=== PATIENT | female | born 1970 | race Hispanic/Latino ===

== ENCOUNTER 2018-02-12 03:01 | Emergency (ER) | payer OTHER ==
--- NOTE | 2018-02-12 03:12 | ED UPPER/LOWER EXTREMITY COMPL ---
History of Present Illness General Chief Complaint: General Adult Stated Complaint: "BIBA PER EMS CELLULITITIS" Source: patient Exam Limitations: no limitations Vital Signs & Intake/Output Vital Signs & Intake/Output Vital Signs Date Time Temp Pulse Resp B/P B/P Pulse O2 O2 Flow FiO2 Mean Ox Delivery Rate 02/12 0530 97.8 84 18 115/77 100 Room Air 02/12 0323 97.6 86 18 112/76 100 Room Air Allergies Coded Allergies: azithromycin (From ZITHROMAX) (HIVES/SWELLING 02/12/18) cholecalciferol (vitamin D3) (From ZOLATE) (HIVES/SWELLING 02/12/18) folic acid (From ZOLATE) (HIVES/SWELLING 02/12/18) Uncoded Allergies: HUMABID LA (SWELLING 02/12/18) Reconcile Medications Cephalexin (Keflex) 500 MG CAPSULE 1 CAP PO 4 TIMES/DAY INFECTION Sulfamethoxazole/Trimethoprim (Bactrim Ds Tablet) 800 MG-160 MG TABLET 1 TAB PO BID INFECION Triage Nurses Notes Reviewed? yes Onset: Gradual Duration: week(s):, waxing and waning Timing: recent history Severity: moderate Method of Injury: unknown HPI: 47 yo woman h/o diabetes, h/o "stent in my blood vessel in my leg," and recurrent cellulitis on left leg, presents with redness, tenderness, and swelling consistent with her prior episodes of cellulitis. She shares that she has had these symptoms for the past 6 months, but notes increased redness and swelling over the past few days. No fever, chills, joint pain, lymphangitic streaking. She is otherwise well. Past History Travel History Traveled to [place] past 21 day No Medical History Any Pertinent Medical History? see below for history Psychiatric: anxiety Endocrine: diabetes Surgical History Surgical History: vascular stent in left leg Family History Hx Contributory? No Review of Systems Review of Systems Constitutional: Reports: no symptoms. EENTM: Reports: no symptoms. Respiratory: Reports: no symptoms. Cardiovascular: Reports: no symptoms. Gastrointestinal/Abdominal: Reports: no symptoms. Genitourinary: Reports: no symptoms. Musculoskeletal: Reports: no symptoms. Skin: Reports: no symptoms. Neurological/Psychological: Reports: no symptoms. Hematologic/Endocrine: Reports: no symptoms. Immunological: Reports: no symptoms. All Other Systems: Reviewed and Negative Physical Exam Physical Exam General Appearance: well developed/nourished, mild distress Head: atraumatic Ears, Nose, Throat: normal pharynx, normal ENT inspection Neck: normal inspection Cardiovascular/Respiratory: normal breath sounds, regular rate/rhythm, no respiratory distress Gastrointestinal: obese Leg Left: mild erythema and swelling of left rodriguez and calf. mildly tender to palpation. 1-2+ pitting edema, Right rodriguez w/ 1+ pitting edema. left leg is slightly warm, but not hot to palpation. , 2+ distal pulses bilateral legs. Progress Differential Diagnosis: cellulitis, venous vs vascular insufficiency. Plan of Care: Orders Procedure Date/time Status COMPREHENSIVE METABOLIC PANEL 02/13 312 Complete CBC WITHOUT DIFFERENTIAL 02/13 312 Complete Laboratory Tests 02/12/18 0345: Anion Gap 10, Estimated GFR > 60, BUN/Creatinine Ratio 25.0, Glucose 239 H, Calcium 9.7, Total Bilirubin 0.1 L, AST 17, ALT 25, Alkaline Phosphatase 141 H , Total Protein 6.3, Albumin 3.4 L, Globulin 2.9, Albumin/Globulin Ratio 1.2, CBC w Diff NO MAN DIFF REQ, RBC 4.68, MCV 86.5, MCH 28.0, MCHC 32.4 L, RDW 15.6 H, MPV 9.8, Gran % 58.1, Lymphocytes % 31.5, Monocytes % 8.5, Eosinophils % 1.6 , Basophils % 0.3, Absolute Granulocytes 5.1, Absolute Lymphocytes 2.8, Absolute Monocytes 0.7 H, Absolute Eosinophils 0.1, Absolute Basophils 0 Departure Departure Disposition: HOME OR SELF CARE Condition: Stable Clinical Impression Primary Impression: Cellulitis Referrals: Patient Has No Primary Care Dr Departure Forms: Customer Survey General Discharge Information Prescriptions: Current Visit Scripts Cephalexin (Keflex) 1 CAP PO 4 TIMES/DAY #40 CAP Sulfamethoxazole/Trimethoprim (Bactrim Ds Tablet) 1 TAB PO BID #20 TAB Comments mild cellulitis without fever or wbc count elevation... I gave her a referral for u/s to evaluate for DVT... She will follow up with her PMD and vascular surgeon.
[2018-02-12 04:12] LABS: ABSOLUTE BASOPHIL COUNT 0 /CUMM (0.0-0.2); ABSOLUTE EOSINOPHIL COUNT 0.1 /CUMM (0.0-0.7); ABSOLUTE GRANULOCYTE CT 5.1 /CUMM (1.4-6.5); ABSOLUTE LYMPH COUNT 2.8 /CUMM (1.2-3.4); ABSOLUTE MONOCYTE COUNT 0.7 /CUMM (0.10-0.60); BASOPHIL % 0.3 % (0.0-2.0); EOSINOPHIL % 1.6 % (0-5); GRANULOCYTE % 58.1 % (42.2-75.2); HEMATOCRIT 40.5 % (37-47); MEAN CORPUSCULAR HGB CONC 32.4 G/DL (33.0-37.0); MEAN CORPUSCULAR VOLUME 86.5 FL (81.0-99.0); MEAN PLATELET VOLUME 9.8 FL (7.4-10.4); PLATELET COUNT 188 /CUMM (130-400); RBC DISTRIBUTION WIDTH 15.6 % (11.5-14.5); RED BLOOD CELL CT 4.68 /CUMM (4.20-5.40); WHITE BLOOD CELL COUNT 8.8 /CUMM (4.8-10.8)
[2018-02-12] MEDS ORDERED: BACTRIM DS TAB1 EACH PO (04:58)
[2018-02-12] MEDS ORDERED: KEFLEX500 M1 PO (04:58)
[2018-02-12 05:30] VITALS: BP 115/77
== END 2018-02-12 06:04 ==
LOC: ERH 03:01
PROVIDERS: Pediatrics
DX: L03.116 Cellulitis of left lower limb (principal)
CPT/HCPCS: 96374; 96375; J0690; J1200

== ENCOUNTER 2018-04-10 11:58 | Emergency (ER) | payer OTHER ==
[~2018-04-10] VITALS: Ht 172.7 cm; Wt 125.6 kg
[~2018-04-10 11:58] MED LIST: BACTRIM DS TAB1 EACH PO; KEFLEX500 M1 PO
[2018-04-10 13:55] LABS: ABSOLUTE BASOPHIL COUNT 0.1 /CUMM (0.0-0.2); ABSOLUTE EOSINOPHIL COUNT 0.1 /CUMM (0.0-0.7); ABSOLUTE GRANULOCYTE CT 6.9 /CUMM (1.4-6.5); ABSOLUTE LYMPH COUNT 2.5 /CUMM (1.2-3.4); ABSOLUTE MONOCYTE COUNT 0.8 /CUMM (0.10-0.60); BASOPHIL % 0.8 % (0.0-2.0); EOSINOPHIL % 0.7 % (0-5); GRANULOCYTE % 67.2 % (42.2-75.2); HEMATOCRIT 41.2 % (37-47); MEAN CORPUSCULAR HGB 28.7 PG (27.0-31.0); MEAN CORPUSCULAR HGB CONC 32.7 G/DL (33.0-37.0); MEAN CORPUSCULAR VOLUME 87.7 FL (81.0-99.0); MEAN PLATELET VOLUME 10.3 FL (7.4-10.4); PLATELET COUNT 212 /CUMM (130-400); RBC DISTRIBUTION WIDTH 14.6 % (11.5-14.5); WHITE BLOOD CELL COUNT 10.3 /CUMM (4.8-10.8)
--- NOTE | 2018-04-10 14:40 | CT SCAN REPORT ---
EXAMINATION: CT ABDOMEN AND PELVIS WITHOUT CONTRAST CLINICAL INFORMATION: Left flank pain and left lower quadrant pain. Presumptive diagnosis of kidney stone. COMPARISON: None. TECHNIQUE: Multidetector volumetric imaging was performed from the superior aspect of the liver through the pubic symphysis. Sagittal and coronal reformatted images were obtained on the technologist workstation. DLP: 1405.33 mGy-cm. FINDINGS: LUNG BASES: Mild platelike atelectasis is seen in the right middle lobe. LIVER, GALLBLADDER, AND BILIARY TREE: The liver is normal in size, shape, and attenuation. No focal hepatic lesion on noncontrast imaging. No biliary ductal dilatation is present. The gallbladder is unremarkable with no evidence of radiopaque gallstones, gallbladder wall thickening, or obvious pericholecystic inflammatory changes. PANCREAS: Diffusely atrophic with fatty infiltration seen. SPLEEN, ADRENAL GLANDS: Unremarkable on noncontrast imaging. KIDNEYS AND URETERS: The kidneys are normal in size, shape, and attenuation. No hydronephrosis, hydroureter, or calculi seen. No perinephric stranding. BLADDER: The bladder is markedly distended with large amounts of air seen within nondependent portions of the bladder lumen. The bladder wall is irregularly thickened. There is a small bowel anastomotic suture line in the right lower quadrant abutting the bladder dome, and there is minimal fat stranding seen extending from the bowel to the right lateral bladder dome. The pericystic fat planes are otherwise well preserved and no fistulous tract to bowel is seen. No Myers catheter is seen in place. Unclear if patient straight catheterizes herself for what appears to be a neurogenic bladder. If the patient does not straight catheterizes herself, the findings are of uncertain etiology and occult fistulous tract between the right lower quadrant small bowel and bladder must be excluded. No definite emphysematous changes are seen in the bladder wall itself. PELVIC VISCERA: Unremarkable. GASTROINTESTINAL TRACT: Mild tortuosity of the second and third portion of the duodenum is seen. Bowel anastomotic suture line is seen within small bowel loops in the right lower quadrant. Please see bladder section above as well for further discussion. The appendix is unremarkable. ABDOMINAL WALL: There is a small fat-containing umbilical hernia. LYMPH NODES, VASCULAR: Unremarkable. A left iliac vein stent graft is seen in place. OSSEOUS STRUCTURES: A posterior spinal stimulator is seen in place with the electrodes extending up into the mid back level (T7 and T9). Posterior spinal fusion hardware is seen at L4, L5 and S1. IMPRESSION: 1. Enlarged irregularly thick walled bladder is seen with large amounts of air within the bladder lumen. No definite air within the bladder wall is seen and no discrete fistulous tract to bowel is seen. There is, however, small amount of localized fat stranding seen along the right lateral bladder dome, extending to the right lower quadrant small bowel anastomotic suture line. There is also a loss of the fat plane between a small segment of this bowel and the bladder dome and a subtle occult fistulous tract between the bladder and bowel is difficult to exclude. Given these findings, if there are no other clinically obvious reasons for gas within the bladder, fistulous tract between small bowel and bladder must be excluded. A CT cystogram may be helpful in further assessment. There may be an underlying abnormal neurogenic bladder. Clinical correlation is requested. 2. No evidence of nephrolithiasis or hydroureteronephrosis. 3. Small fat-containing umbilical hernia. This urgent result was discussed with ASHLEY Tan 04/10/2018, 2:16 PM and it was ascertained that the content and urgency of this report was understood at the time of direct communication.
--- NOTE | 2018-04-10 14:42 | ULTRASOUND REPORT ---
EXAMINATION: US TRIPLEX LOWER EXTREMITY, LEFT CLINICAL INFORMATION: There is a 47-year-old female with left leg pain. Possible deep vein thrombosis. COMPARISON: None TECHNIQUE: Color-flow triplex imaging with spectral analysis and compression Doppler were performed on the lower extremity. The calf veins were poorly visualized. FINDINGS: Respiratory variation, normal compression and augmented flow are noted throughout the lower extremity. The visualized common femoral vein, superficial femoral vein, profunda femoral vein, popliteal vein and midcalf peroneal and posterior tibial venous segments show no evidence of deep venous thrombosis. There is no Altamirano's cyst. IMPRESSION: No evidence of deep venous thrombosis involving the lower extremity.
--- NOTE | 2018-04-10 18:52 | ED GI/GU/ABDOMINAL COMPLAINT ---
History of Present Illness General Chief Complaint: General Adult Stated Complaint: PT HAS PAIN POSSIBLE BLADDER INFECTION,LT PAIM Source: patient Exam Limitations: no limitations Vital Signs & Intake/Output Vital Signs & Intake/Output Vital Signs Date Time Temp Pulse Resp B/P B/P Pulse O2 O2 Flow FiO2 Mean Ox Delivery Rate 04/11 0111 98.7 74 18 139/82 99 Room Air 04/10 2327 97.1 79 20 145/79 97 Room Air 04/10 2122 98.7 73 18 135/75 100 Room Air 04/10 1937 98.7 86 20 145/76 98 Room Air 04/10 1705 98.9 76 20 131/73 99 Room Air 04/10 1219 96.6 93 18 132/84 96 Room Air ED Intake and Output 04/11 0000 04/10 1200 Intake Total Output Total 900 Balance -900 Output, Urine 900 Patient 277 lb Weight Weight Reported by Patient Measurement Method Allergies Coded Allergies: azithromycin (From ZITHROMAX) (HIVES/SWELLING 02/12/18) cholecalciferol (vitamin D3) (From ZOLATE) (HIVES/SWELLING 02/12/18) folic acid (From ZOLATE) (HIVES/SWELLING 02/12/18) Uncoded Allergies: HUMABID LA (SWELLING 02/12/18) Triage Note: 47 Y/O FEMALE C/O DIFFUSE ABDOMINAL PAIN RADIATING INTO L FLANK SINCE YESTERDAY. +NAUSEA/VOMITING. DENIES DIARRHEA. STATES SHE SAW HER DR YESTERDAY AND HAD OUTPATIENT BLOODWORK AND URINE DONE WITH UNKNOWN RESULTS. PT ALSO C/O L LOWER EXTREMITY REDNESS SINCE YESTERDAY - HX RECURRENT CELLULITIS PER PT. AFEBRILE. EVAL'D BY ASHLEY BRANTLEY IN TRIAGE Triage Nurses Notes Reviewed? yes ? N Is pt currently ? No HPI: Patient presents for evaluation of a severe left-sided abdominal pain radiating to the left back. The pain began acutely yesterday and has been intermittent since. Patient states it feels like "contractions". Patient felt chills yesterday but denies fever or cold symptoms. She likewise denies diarrhea or dysuria. She admits to vomiting 4 times yesterday (nonbloody). Past surgical history is pertinent for bladder augmentation. (Mary JACOBSON,Ricardo Bourne) Reconcile Medications Cephalexin (Keflex) 500 MG CAPSULE 1 CAP PO TID cellulitis Cephalexin (Keflex) 500 MG CAPSULE 1 CAP PO TID cellulitis Fluconazole (Diflucan) 200 MG TABLET 1 TAB PO DAILY uti Oxycodone HCl/Acetaminophen (Percocet 5-325 MG Tablet) 5 MG-325 MG TABLET 1-2 TAB PO Q6H PRN severe pain Sulfamethoxazole/Trimethoprim (Bactrim Ds Tablet) 800 MG-160 MG TABLET 1 TAB PO BID INFECION (Johann Cleveland MD) Past History Travel History Traveled to [place] past 21 day No Medical History Any Pertinent Medical History? see below for history Neurological: seizure, DIABETIC NEUROPATHY EENT: NONE Cardiovascular: NONE Respiratory: bronchitis, COPD Gastrointestinal: NONE Hepatic: NONE Renal: NONE Musculoskeletal: chronic back pain Psychiatric: anxiety, depression Endocrine: diabetes, hypothyroidism Blood Disorders: NONE Cancer(s): NONE FINISHING INSPECTOR/Reproductive: NONE Surgical History Surgical History: vascular stent in left leg Psychosocial History What is your primary language Uzbek Tobacco Use: Current Daily Use Daily Tobacco Use Amount/Type: => 5 Cigarettes daily Family History Hx Contributory? No (Mary JACOBSON,Ricardo Bourne) Review of Systems Review of Systems Constitutional: Reports: no symptoms. EENTM: Reports: no symptoms. Respiratory: Reports: no symptoms. Cardiovascular: Reports: no symptoms. GI: Reports: see HPI. Genitourinary: Reports: no symptoms. Musculoskeletal: Reports: no symptoms. Skin: Reports: no symptoms. Neurological/Psychological: Reports: no symptoms. Hematologic/Endocrine: Reports: no symptoms. Immunologic/Allergic: Reports: no symptoms. All Other Systems: Reviewed and Negative (Ricardo Hernandez MD) Physical Exam Physical Exam Gastrointestinal: SEE BELOW Comments: Gen.: Well-nourished, well-developed, no acute respiratory distress. Obese. Head: Normocephalic, atraumatic. Eyes: Normal inspection bilaterally Ears: Normal inspection bilaterally Nose: Normal inspection Throat/mouth : Moist mucosa Neck: Supple, full range of motion, no goiter Heart: Regular rate and rhythm, no murmurs rubs or gallops Lungs: Clear to auscultation bilaterally with normal air entry Chest: Nontender Back: Normal range of motion, nontender Abdomen: Soft, tenderness over the left upper and left lower quadrants with brief voluntary guarding but no apparent rebound, nondistended, normal bowel sounds Extremities: Normal range of motion grossly, equal radial pulses, no cyanosis clubbing or edema Neurologic: Cranial nerves grossly intact, speech is clear Skin: warm and dry Psychiatric: Calm, cooperative, no apparent delusions or hallucinations Core Measures ACS in differential dx? No Sepsis Present: No Sepsis Focused Exam Completed? No (Mary JACOBSON,Ricardo Bourne) Progress Differential Diagnosis: biliary colic, diverticulitis, inflamm bowel dis, kidney stone, pancreatitis, perforated viscous Plan of Care: Orders Procedure Date/time Status Add-on Test (ER Only) 04/10 185 Active Myers, Insertion/Removal/Asses 04/10 185 Active Straight Cath 04/10 1441 Active BLOOD CULTURE 04/10 1323 Active CULTURE,URINE 04/10 1257 Active LIPASE 04/10 1223 Complete LACTIC ACID 04/10 1223 Complete COMPREHENSIVE METABOLIC PANEL 04/10 1223 Complete CBC WITHOUT DIFFERENTIAL 04/10 1223 Complete URINALYSIS 04/10 1207 Complete Current Medications Sig/Blanca Start time Last Medication Dose Stop Time Status Admin Ketorolac 60 MG ONCE ONE 04/10 1230 CAN Tromethamine 04/10 1231 (Toradol) Ondansetron HCl 4 MG ONCE ONE 04/10 1230 CAN (Zofran) 04/10 1231 Laboratory Tests 04/10/18 1523: Lactic Acid Cancelled 04/10/18 1325: Anion Gap 8, Estimated GFR > 60, BUN/Creatinine Ratio 24.0, Glucose 324 H, Lactic Acid 1.9, Calcium 10.2, Total Bilirubin 0.2, AST 17, ALT 25, Alkaline Phosphatase 135 H, Total Protein 6.1 L, Albumin 3.5, Globulin 2.6, Albumin/ Globulin Ratio 1.3, Lipase 263, CBC w Diff NO MAN DIFF REQ, RBC 4.70, MCV 87.7, MCH 28.7, MCHC 32.7 L, RDW 14.6 H, MPV 10.3, Gran % 67.2, Lymphocytes % 24.0, Monocytes % 7.3, Eosinophils % 0.7, Basophils % 0.8, Absolute Granulocytes 6.9 H, Absolute Lymphocytes 2.5, Absolute Monocytes 0.8 H, Absolute Eosinophils 0.1 , Absolute Basophils 0.1 04/10/18 1257: Urine Color YEL, Urine Clarity TURBD H, Urine pH 6.0, Ur Specific Gustine 1.025 , Urine Protein NEG, Urine Ketones NEG, Urine Nitrite NEG, Urine Bilirubin NEG, Urine Urobilinogen 0.2, Ur Leukocyte Esterase NEG, Ur Microscopic SEDIMENT EXAMINED, Urine RBC FEW H, Urine Bacteria PACKD H, Micro UA Comment BUDDING YEAST H, Urine Hemoglobin TRACE-INTACT, Urine Glucose >=1000 H Microbiology 04/10 2326 BLOOD: Blood Culture - RECD 04/10 1325 BLOOD: Blood Culture - RECD 04/10 1257 URINE ROUT: Urine Culture - RECD Diagnostic Imaging: Discussed w/RAD: CT Scan, Ultrasound. Radiology Impression: PATIENT: UCHE GUZMAN PRESENT AGE: 47 PATIENT ACCOUNT NO: [id number] : 68 LOCATION: ER ORDERING PHYSICIAN: Rosalio RAMIREZ SERVICE DATE: 04/10/18 EXAM TYPE: US - US- DUPLEX VENOUS EXTREM UNI EXAMINATION: US TRIPLEX LOWER EXTREMITY, LEFT CLINICAL INFORMATION: There is a 47-year-old female with left leg pain. Possible deep vein thrombosis. COMPARISON: None TECHNIQUE: Color-flow triplex imaging with spectral analysis and compression Doppler were performed on the lower extremity. The calf veins were poorly visualized. FINDINGS: Respiratory variation, normal compression and augmented flow are noted throughout the lower extremity. The visualized common femoral vein, superficial femoral vein, profunda femoral vein, popliteal vein and midcalf peroneal and posterior tibial venous segments show no evidence of deep venous thrombosis. There is no Altamirano's cyst. IMPRESSION: No evidence of deep venous thrombosis involving the lower extremity. DICTATED BY: Donte Keller MD DATE/TIME DICTATED:04/10/181437 BRIDGE CONSTRUCTION INSPECTOR: JOLIE DATE/TIME TRANSCRIBED:04/10/181437 CONFIDENTIAL, DO NOT COPY WITHOUT APPROPRIATE AUTHORIZATION. <Electronically signed in Other Vendor System> SIGNED BY: Donte Keller MD 04/10/18 1442, PATIENT: UCHE GUZMAN PRESENT AGE: 47 PATIENT ACCOUNT NO: [id number] : LOCATION: [facility] ORDERING PHYSICIAN: Rosalio RAMIREZ SERVICE DATE: EXAM TYPE: CAT - CT ABD & PELVIS W/O IV CONTRAS EXAMINATION: CT ABDOMEN AND PELVIS WITHOUT CONTRAST CLINICAL INFORMATION: Left flank pain and left lower quadrant pain. Presumptive diagnosis of kidney stone. COMPARISON: None. TECHNIQUE: Multidetector volumetric imaging was performed from the superior aspect of the liver through the pubic symphysis. Sagittal and coronal reformatted images were obtained on the technologist workstation. DLP: 1405.33 mGy-cm. FINDINGS: LUNG BASES: Mild platelike atelectasis is seen in the right middle lobe. LIVER, GALLBLADDER, AND BILIARY TREE: The liver is normal in size, shape, and attenuation. No focal hepatic lesion on noncontrast imaging. No biliary ductal dilatation is present. The gallbladder is unremarkable with no evidence of radiopaque gallstones, gallbladder wall thickening, or obvious pericholecystic inflammatory changes. PANCREAS: Diffusely atrophic with fatty infiltration seen. SPLEEN, ADRENAL GLANDS: Unremarkable on noncontrast imaging. KIDNEYS AND URETERS: The kidneys are normal in size, shape, and attenuation. No hydronephrosis, hydroureter, or calculi seen. No perinephric stranding. BLADDER: The bladder is markedly distended with large amounts of air seen within nondependent portions of the bladder lumen. The bladder wall is irregularly thickened. There is a small bowel anastomotic suture line in the right lower quadrant abutting the bladder dome, and there is minimal fat stranding seen extending from the bowel to the right lateral bladder dome. The pericystic fat planes are otherwise well preserved and no fistulous tract to bowel is seen. No Myers catheter is seen in place. Unclear if patient straight catheterizes herself for what appears to be a neurogenic bladder. If the patient does not straight catheterizes herself, the findings are of uncertain etiology and occult fistulous tract between the right lower quadrant small bowel and bladder must be excluded. No definite emphysematous changes are seen in the bladder wall itself. PELVIC VISCERA: Unremarkable. GASTROINTESTINAL TRACT: Mild tortuosity of the second and third portion of the duodenum is seen. Bowel anastomotic suture line is seen within small bowel loops in the right lower quadrant. Please see bladder section above as well for further discussion. The appendix is unremarkable. ABDOMINAL WALL: There is a small fat-containing umbilical hernia. LYMPH NODES, VASCULAR: Unremarkable. A left iliac vein stent graft is seen in place. OSSEOUS STRUCTURES: A posterior spinal stimulator is seen in place with the electrodes extending up into the mid back level (T7 and T9). Posterior spinal fusion hardware is seen at L4, L5 and S1. IMPRESSION: 1. Enlarged irregularly thick walled bladder is seen with large amounts of air within the bladder lumen. No definite air within the bladder wall is seen and no discrete fistulous tract to bowel is seen. There is, however, small amount of localized fat stranding seen along the right lateral bladder dome, extending to the right lower quadrant small bowel anastomotic suture line. There is also a loss of the fat plane between a small segment of this bowel and the bladder dome and a subtle occult fistulous tract between the bladder and bowel is difficult to exclude. Given these findings, if there are no other clinically obvious reasons for gas within the bladder, fistulous tract between small bowel and bladder must be excluded. A CT cystogram may be helpful in further assessment. There may be an underlying abnormal neurogenic bladder. Clinical correlation is requested. 2. No evidence of nephrolithiasis or hydroureteronephrosis. 3. Small fat-containing umbilical hernia. This urgent result was discussed with ASHLEY Tan 04/10/2018, 2:16 PM and it was ascertained that the content and urgency of this report was understood at the time of direct communication. DICTATED BY: Coby Noyola MD DATE/TIME DICTATED:04/10/181337 BRIDGE CONSTRUCTION INSPECTOR:JOLIE DATE/TIME TRANSCRIBED:04/10/181337 CONFIDENTIAL, DO NOT COPY WITHOUT APPROPRIATE AUTHORIZATION. <Electronically signed in Other Vendor System> SIGNED BY: Coby Noyola MD 04/10/18 1440 Initial ED EKG: none Comments: 04/10/2018 7:19:40 PM patient signed out to Dr. Cleveland at shift change number operator. CT cystogram pending. (Mary JACOBSON,Ricardo Bourne) Radiology Impression: No contrast communication between the bladder and surrounding bowel loops to indicate the presence of a fistula. Bladder remains moderately distended with gas, with some regions of wall thickening as also noted on today's earlier exam. (Johann Cleveland MD) Departure Departure Condition: Stable Departure Forms: Customer Survey General Discharge Information (Ricardo Hernandez MD) Departure Time of Disposition: 33 Disposition: HOME OR SELF CARE Clinical Impression Primary Impression: Abdominal pain Secondary Impressions: Cellulitis, UTI (urinary tract infection) Referrals: Rosemary Davenport MD Call for urology follow up Robert Weems MD Call for vascular surgery follow up Christine Thompson MD (PCP/Family) Prescriptions: Current Visit Scripts Cephalexin (Keflex) 1 CAP PO TID #30 CAP Fluconazole (Diflucan) 1 TAB PO DAILY #7 TAB Cephalexin (Keflex) 1 CAP PO TID #21 CAP Oxycodone HCl/Acetaminophen (Percocet 5-325 MG Tablet) 1-2 TAB PO Q6H PRN severe pain #15 TAB (Cristofer JACOBSON,Johann)
--- NOTE | 2018-04-11 00:13 | CT SCAN REPORT ---
EXAMINATION: CT PELVIS WITHOUT CONTRAST CLINICAL INFORMATION: Fistula suspected on previous study COMPARISON: CT abdomen/pelvis from earlier today TECHNIQUE: Helical scanning was performed with submillimeter collimation through the pelvis. Imaging was performed without contrast, followed by dilute Cystografin contrast, followed by post void imaging. Sagittal and coronal multiplanar 2-D reconstructions were obtained. DLP: 3149.14 mGy-cm FINDINGS: Initial precontrast imaging demonstrates Myers catheter in the bladder which is moderately distended predominantly with gas along with some debris. Following contrast instillation, a moderate amount of hyperdense fluid is present in the bladder, and there is no appreciable contrast is within surrounding loops of bowel to indicate a fistula. Postvoid imaging demonstrates drainage of contrast from the bladder, with residual bladder gas present. Bladder wall is noted to have a lobulated contour with some regions of wall thickening as also present on today's earlier exam. Small bowel suture line is again noted in the right lower quadrant with some adjacent stranding near the bladder wall. No colonic wall thickening identified. A moderate amount of stool is present in the visualized colon. The appendix is unremarkable. No free fluid or free air is seen. Patient is status post hysterectomy. No lymphadenopathy is seen. Left common iliac vein stent is noted. Redemonstrated fusion hardware in the spine at L4-S1. IMPRESSION: No contrast communication between the bladder and surrounding bowel loops to indicate the presence of a fistula. Bladder remains moderately distended with gas, with some regions of wall thickening as also noted on today's earlier exam.
[2018-04-11] MEDS ORDERED: KEFLEX500 M1 PO ×2 (00:36→01:07)
[2018-04-11] MEDS ORDERED: DIFLUCAN200 M1 PO ×2 (00:36→01:07)
[2018-04-11] MEDS ORDERED: PERCOCET 5-3251 EACH PO ×2 (00:37→01:07)
[2018-04-11 01:11] VITALS: BP 139/82
== END 2018-04-11 01:15 ==
LOC: ERH 11:58
PROVIDERS: Physician Assistant Medical
DX: N39.0 Urinary tract infection, site not specified (principal); L03.116 Cellulitis of left lower limb; R56.9 Unspecified convulsions; J44.9 Chronic obstructive pulmonary disease, unspecified; F41.9 Anxiety disorder, unspecified; E11.9 Type 2 diabetes mellitus without complications; E03.9 Hypothyroidism, unspecified
CPT/HCPCS: 74176; 81001; 87040; 87071; 87086; 96374; 96375; 96376; J0690; J1450; J1885; J2405